=== PATIENT | male | born 1960 | race Caucasian/White ===

== ENCOUNTER 2017-08-20 15:14 | Outpatient (CLI) | payer OTHER ==
[2017-08-20 15:42] LABS: ALT (SGPT) 27 U/L (8-55); AST (SGOT) 16 U/L (5-34); Alkaline Phosphatase 61 U/L (40-150); Anion Gap 15 mmol/L (10-20); BUN (Urea Nitrogen) 20 mg/dL (8.4-25.7); Bilirubin, Total 0.6 mg/dL (0.2-1.2); Calc. Creatinine Clearance 0 mL/min (70-130); Calcium 9.5 mg/dL (7.8-10.44); Carbon Dioxide 25 mmol/L (22-29); Chloride 104 mmol/L (98-107); Estimated GFR-MDRD 86; Globulin 3.3 g/dL (2.4-3.5); Protein, Total 7.5 g/dL (6.0-8.3); Uric Acid 5.6 mg/dL (3.5-7.2)
--- NOTE | 2017-08-20 17:13 | RAD ---
FOUR VIEWS RIGHT KNEE: History: Right knee pain for two months. M25.561 Technique: AP, lateral, and both oblique views right knee obtained. FINDINGS: There is mild medial compartment joint space narrowing. No evidence of acute fractures, subluxations, or bony lesions seen. IMPRESSION: Mild medial compartment right knee osteoarthritic changes. No acute abnormalities seen. POS: [facility]
--- NOTE | 2017-08-20 17:42 | RAD ---
4 VIEWS LEFT KNEE: Date: 08/20/17 HISTORY: Left knee pain for 2 months. FINDINGS: AP, lateral, and both oblique views of left knee obtained. FINDINGS: There is some joint space narrowing in the medial compartment of the left knee. Osteophytes seen in t he lateral compartment of the left knee. Findings compatible with left knee osteoarthritic changes. IMPRESSION: Medial compartment joint space narrowing and lateral compartment osteophytes compatible with changes of osteoarthritis. POS: [facility]
== END 2017-08-20 15:15 | disposition home or self-care (01) ==
LOC: SCSRAD 15:14
PROVIDERS: ATTEND Family Medicine
DX: M25.561 Pain in right knee (principal); M25.562 Pain in left knee; R60.9 Edema, unspecified; M17.11 Unilateral primary osteoarthritis, right knee
CPT/HCPCS: 36415; 80053; 83880; 84443; 84550

== ENCOUNTER 2020-12-15 13:44 | Outpatient (CLI) | payer BC ==
[2020-12-15 17:36] LABS: #Eosinphils 0.4 10x3/uL (0.0-0.5); #Monocytes 0.5 10x3/uL (0.0-1.1); #Neutrophils 3.9 10x3/uL (1.5-8.4); %Basophils 0.6 % (0.0-2.0); %Eosinophils 6.1 % (0.0-6.0); %Lymphocytes 31.8 % (18.0-47.0); %Monocytes 7.5 % (0.0-10.0); %Neutrophils 53.6 % (40.0-75.0); Hemoglobin 16.2 g/dL (13.5-17.5); Mean Corpuscular Hemoglobin 29.1 pg (27.0-33.0); Mean Corpuscular Volume 88.3 fl (81.2-95.1); Mean Platelet Volume 10.6 fl (7.4-10.4); Platelet Count 208 10x3/uL (150-450); RBC Distribution Width 14.4 % (11.5-14.5); Red Blood Cell (RBC) Count 5.56 10x6/uL (4.32-5.72); White Blood Cell (WBC) Count 7.2 10x3/uL (3.5-10.5)
[2020-12-15 17:40] LABS: Bilirubin Neg (Negative); Blood, Urine Negative (Negative); Clarity Clear (Clear); Glucose, Urine (Dipstick) Normal (Negative); Ketone, Urine Negative (Negative); Leukocyte Negative (Negative); Nitrite Negative (Negative); Protein, Urine (Dipstick) Negative (Neg-Trace); Specific Gravity, Urine 1.015 (1.002-1.036); Urobilinogen Normal mg/dL (Less than 2)
[2020-12-15 17:47] LABS: INR-International Normal Ratio 0.9; Prothrombin Time 10.3 sec (9.5-12.1)
[2020-12-15 17:56] LABS: Anion Gap 14 mmol/L (10-20); BUN (Urea Nitrogen) 23 mg/dL (8.4-25.7); Calc. Creatinine Clearance 0 mL/min (70-130); Calcium 9.4 mg/dL (7.8-10.44); Carbon Dioxide 28 mmol/L (23-31); Chloride 103 mmol/L (98-107); Glucose 84 mg/dL (80-115); Potassium 4.7 mmol/L (3.5-5.1)
[2020-12-15 18:01] LABS: Bacteria/HPF None Seen HPF (None Seen); RBC/HPF None Seen HPF (0-3); Squamous Epithelial None Seen HPF (0-3); WBC/HPF None Seen HPF (0-3)
[2020-12-15 18:05] LABS: Sodium 140 mmol/L (136-145)
[2020-12-16 02:32] LABS: SARS-CoV-2 PCR by NAA Not Detected (NotDetected)
== END 2020-12-15 13:45 | disposition home or self-care (01) ==
LOC: LABBT 13:44
PROVIDERS: ATTEND Orthopaedic Surgery
DX: Z01.818 Encounter for other preprocedural examination (principal); M17.11 Unilateral primary osteoarthritis, right knee; Z20.822 Contact with and (suspected) exposure to COVID-19
CPT/HCPCS: 80048; 81001; 85025; 85610; 87081; 87635; 93005; 93010; U0003; U0005

== ENCOUNTER 2020-12-20 05:23 | Observation (INO) | payer BC ==
[2020-12-20] MEDS ORDERED: Tranexamic Acid 1,000 MG/10 ML VIAL ONE ×2 (05:59→09:17)
[2020-12-20] MEDS ORDERED: Sodium Chloride 0.9% 100 ML ONE (05:59)
[2020-12-20] MEDS ORDERED: Acetaminophen 325 MG/10.15 ML UDCUP ONE (05:59)
[2020-12-20] MEDS ORDERED: Vancomycin 1.5 GRAM/300 ML BAG ONE (05:59)
[2020-12-20] MEDS ORDERED: Midazolam HCl 2 mg/2 ml Vial ONE (06:13)
[2020-12-20] MEDS ORDERED: Fentanyl 100 MCG/2 ML VIAL ONE ×2 (06:14→06:56)
[2020-12-20] MEDS ORDERED: Bupivacaine PF 0.5% 30 ML VIAL ONE (06:25)
[2020-12-20] MEDS ORDERED: Lidocaine 1% (PF) 30 ML VIAL ONE (06:36)
[2020-12-20] MEDS ORDERED: Dexmedetomidine 200 MCG/2 ML VIAL ONE (06:56)
[2020-12-20] MEDS ORDERED: Ropivacaine 2% HCl/PF (20 MG/10 ML VIAL) ONE (07:12)
[2020-12-20] MEDS ORDERED: Ondansetron PF 4 MG/2 ML Vial ONE (07:12)
[2020-12-20] MEDS ORDERED: Ketorolac Tromethamine 30 MG/ML VIAL ONE (07:12)
[2020-12-20] MEDS ORDERED: Ropivacaine 0.5% HCl/PF (150 MG/30 ML VIAL) ONE (07:12)
[2020-12-20] MEDS ORDERED: Dexamethasone 20 MG/5 ML VIAL ONE (07:12)
[2020-12-20] MEDS ORDERED: PROPOFOL 200 MG/20 ML VIAL ONE (07:12)
[2020-12-20] MEDS ORDERED: Lidocaine 1% PF 5 ML VIAL ONE (07:12)
[2020-12-20] MEDS ORDERED: ePHEDrine 50 MG/ML VIAL ONE (07:12)
[2020-12-20] MEDS ORDERED: Fentanyl 100 MCG/2 ML VIAL IV PRN (07:32)
[2020-12-20] MEDS ORDERED: Zolpidem Tartrate 5 MG TAB PO PRN ×2 (07:45→09:53)
[2020-12-20] MEDS ORDERED: HYDROcodone/Acetaminophen 10/325 mg Tablet PO PRN (07:45)
[2020-12-20] MEDS ORDERED: Ondansetron PF 4 MG/2 ML Vial IVP PRN ×2 (07:45→09:53)
[2020-12-20] MEDS ORDERED: Ropivacaine HCl/PF 250 ML in Premix Bag 1 BAG NERVE BLCK SCH (07:45)
[2020-12-20] MEDS ORDERED: traMADol HCl 50 MG TAB PO PRN ×2 (07:45)
[2020-12-20] MEDS ORDERED: Promethazine HCl 25 MG/ML VIAL IM PRN ×2 (07:45→09:53)
[2020-12-20] MEDS ORDERED: Acetaminophen 325 MG TAB PO PRN (09:53)
[2020-12-20 11:24] VITALS: BMI 39.3
[2020-12-20] MEDS ORDERED: Ketorolac Tromethamine 30 MG/ML VIAL IVP SCH (12:00)
[2020-12-20] MEDS: Ketorolac Tromethamine 30 MG/ML VIAL IVP SCH ×2 (14:42→19:46)
[2020-12-20] MEDS: CEFAZOLIN 2 GM in Premix Bag 1 BAG IVPB SCH ×2 (14:43→22:03)
[2020-12-20] MEDS ORDERED: Vancomycin 1.5 GRAM/300 ML BAG 1.5 GM in Premix Bag 1 BAG IVPB SCH (18:00)
[2020-12-20] MEDS ORDERED: Vancomycin HCl 1.5 GM in Sodium Chloride 0.9% 250 ML 300 ML IVPB SCH (18:00)
[2020-12-20] MEDS: Senokot S 8.6-50 MG TAB PO SCH (19:49)
[2020-12-20] MEDS: Aspirin 81 mg Enteric Coated Tablet PO SCH (19:49)
[2020-12-20] MEDS: Ferrous Gluconate 324 MG TAB PO SCH (19:49)
[2020-12-21] MEDS: Ketorolac Tromethamine 30 MG/ML VIAL IVP SCH ×4 (02:03→20:04)
[2020-12-21 05:44] LABS: Mean Corpuscular HGB CONC 33.4 g/dL (32.0-36.0); Mean Corpuscular Hemoglobin 30.3 pg (27.0-31.0); Mean Corpuscular Volume 90.7 fL (78.0-98.0); Mean Platelet Volume 8.2 fL (7.4-10.4); Platelet Count 167 thou/uL (130-400); RBC Distribution Width 13.2 % (11.5-14.5); Red Blood Cell (RBC) Count 4.29 mill/uL (4.70-6.10); White Blood Cell (WBC) Count 11.9 thou/uL (4.8-10.8)
[2020-12-21] MEDS: Multivitamin W/ Minerals 1 TAB PO SCH (08:28)
[2020-12-21] MEDS: Senokot S 8.6-50 MG TAB PO SCH ×2 (08:28→20:05)
[2020-12-21] MEDS: Ferrous Gluconate 324 MG TAB PO SCH ×2 (08:29→20:05)
[2020-12-21] MEDS: HYDROcodone/Acetaminophen 10/325 mg Tablet PO PRN ×3 (08:29→18:19)
[2020-12-21] MEDS: Aspirin 81 mg Enteric Coated Tablet PO SCH ×2 (08:29→20:05)
[2020-12-22] MEDS: diphenhydrAMINE 25 MG CAP PO PRN ×2 (00:04→09:05)
[2020-12-22] MEDS: Ketorolac Tromethamine 30 MG/ML VIAL IVP SCH ×2 (02:42→09:02)
[2020-12-22 05:41] LABS: Hemoglobin 12.2 g/dL (14.0-18.0); Mean Corpuscular HGB CONC 32.4 g/dL (32.0-36.0); Mean Corpuscular Hemoglobin 29.4 pg (27.0-31.0); Mean Corpuscular Volume 90.8 fL (78.0-98.0); Mean Platelet Volume 8.6 fL (7.4-10.4); Platelet Count 149 thou/uL (130-400); RBC Distribution Width 13.1 % (11.5-14.5); Red Blood Cell (RBC) Count 4.17 mill/uL (4.70-6.10); White Blood Cell (WBC) Count 8.7 thou/uL (4.8-10.8)
[2020-12-22] MEDS: HYDROcodone/Acetaminophen 10/325 mg Tablet PO PRN (09:00)
[2020-12-22] MEDS: Aspirin 81 mg Enteric Coated Tablet PO SCH (09:02)
[2020-12-22] MEDS: Multivitamin W/ Minerals 1 TAB PO SCH (09:02)
[2020-12-22] MEDS: Senokot S 8.6-50 MG TAB PO SCH (09:02)
[2020-12-22] MEDS: Ferrous Gluconate 324 MG TAB PO SCH (09:02)
[2020-12-22 11:19] VITALS: BP 142/76; TEMP 98.7
== END 2020-12-22 11:20 | disposition home or self-care (01) ==
LOC: SDC 05:23 → SJJU 10:00 → EDSTATUS 13:45
PROVIDERS: ADMIT Orthopaedic Surgery; ATTEND Orthopaedic Surgery
PROC: 0SRC0J9 Replacement of Right Knee Joint with Synthetic Substitute, Cemented, Open Approach (ICD-10-PCS; principal; 2020-12-20)
PROC: 8E0YXBZ Computer Assisted Procedure of Lower Extremity (ICD-10-PCS; 2020-12-20)
PROC: 3E0T3BZ Introduction of Anesthetic Agent into Peripheral Nerves and Plexi, Percutaneous Approach (ICD-10-PCS; 2020-12-20)
PROC: 3E0T3BZ Introduction of Anesthetic Agent into Peripheral Nerves and Plexi, Percutaneous Approach (ICD-10-PCS; 2020-12-20)
DX: M17.0 Bilateral primary osteoarthritis of knee (principal); G89.18 Other acute postprocedural pain; J44.9 Chronic obstructive pulmonary disease, unspecified; G47.33 Obstructive sleep apnea (adult) (pediatric); N52.9 Male erectile dysfunction, unspecified; F17.200 Nicotine dependence, unspecified, uncomplicated; Z79.899 Other long term (current) drug therapy; Z88.5 Allergy status to narcotic agent
CPT/HCPCS: 36415; 85027; 96365; 96366; 96367; 96375; 96376; C1713; C1776; G0378; J0690; J1100; J1885; J2001; J2250; J2405; J2704; J2795; J3010; J3370; J3490; Q0163; S0020

== ENCOUNTER 2021-08-10 14:01 | Outpatient (CLI) | payer BC ==
[2021-08-10 15:58] LABS: INR-International Normal Ratio 0.9; Prothrombin Time 10.3 sec (9.5-12.1)
== END 2021-08-10 14:02 | disposition home or self-care (01) ==
LOC: LABBT 14:01
PROVIDERS: ATTEND Orthopaedic Surgery
DX: Z01.818 Encounter for other preprocedural examination (principal); M17.12 Unilateral primary osteoarthritis, left knee
CPT/HCPCS: 71046; 85610; 93005; 93010

== ENCOUNTER 2021-08-15 07:10 | Inpatient (IN) | payer BC ==
[2021-08-09 12:00] VITALS: BMI 39.1
[2021-08-10 15:43] LABS: Bilirubin Neg (Negative); Blood, Urine Negative (Negative); Clarity Clear (Clear); Glucose, Urine (Dipstick) Normal (Negative); Ketone, Urine Negative (Negative); Leukocyte Negative (Negative); Nitrite Negative (Negative); Protein, Urine (Dipstick) Negative (Neg-Trace); Specific Gravity, Urine 1.005 (1.002-1.036); Urobilinogen Normal mg/dL (Less than 2); pH, Urine 6.5 (5.0-9.0)
[2021-08-10 15:52] LABS: #Eosinphils 0.3 10x3/uL (0.0-0.5); #Monocytes 0.4 10x3/uL (0.0-1.1); #Neutrophils 3.1 10x3/uL (1.5-8.4); %Basophils 0.5 % (0.0-2.0); %Eosinophils 5.2 % (0.0-6.0); %Lymphocytes 41.3 % (18.0-47.0); %Monocytes 6.1 % (0.0-10.0); %Neutrophils 46.6 % (40.0-75.0); Hemoglobin 16.3 g/dL (13.5-17.5); Mean Corpuscular HGB CONC 32.5 g/dL (32.0-36.0); Mean Corpuscular Hemoglobin 28.6 pg (27.0-33.0); Mean Corpuscular Volume 87.9 fl (81.2-95.1); Mean Platelet Volume 10.2 fl (7.4-10.4); Platelet Count 212 10x3/uL (150-450); RBC Distribution Width 13.5 % (11.5-14.5); White Blood Cell (WBC) Count 6.6 10x3/uL (3.5-10.5)
[2021-08-10 16:09] LABS: Anion Gap 14 mmol/L (10-20); BUN (Urea Nitrogen) 20 mg/dL (8.4-25.7); Calc. Creatinine Clearance 0 mL/min (70-130); Calcium 9.3 mg/dL (7.8-10.44); Carbon Dioxide 24 mmol/L (23-31); Chloride 107 mmol/L (98-107); Glucose 85 mg/dL (80-115); Potassium 4.4 mmol/L (3.5-5.1); Sodium 141 mmol/L (136-145)
[2021-08-11 21:08] LABS: SARS-CoV-2 PCR by NAA Not Detected (NotDetected)
[2021-08-15] MEDS ORDERED: Midazolam HCl 2 mg/2 ml Vial ONE (08:06)
[2021-08-15] MEDS ORDERED: Fentanyl 100 MCG/2 ML VIAL ONE ×4 (08:06→12:41)
[2021-08-15] MEDS ORDERED: Tranexamic Acid 1,000 MG/10 ML VIAL ONE (08:07)
[2021-08-15] MEDS ORDERED: ceFAZolin Sodium (SDC) 2 GM/100 ML BAG ONE (08:07)
[2021-08-15] MEDS ORDERED: Sodium Chloride 0.9% 100 ML ONE (08:07)
[2021-08-15] MEDS ORDERED: Ondansetron HCl/PF 4 MG/2 ML Vial IVP PRN (08:15)
[2021-08-15] MEDS ORDERED: Promethazine HCl 25 MG/ML VIAL IVPB PRN (08:15)
[2021-08-15] MEDS ORDERED: Ketorolac Tromethamine 30 MG/ML VIAL IVP PRN (08:15)
[2021-08-15] MEDS ORDERED: Promethazine HCl 25 MG/ML VIAL IM PRN ×3 (08:15→11:54)
[2021-08-15] MEDS ORDERED: Vancomycin 1.5 GRAM/300 ML BAG 1.5 GM in Premix Bag 1 BAG IVPB SCH ×2 (08:30→21:00)
[2021-08-15] MEDS ORDERED: Fentanyl 100 MCG/2 ML VIAL IV PRN (09:39)
[2021-08-15] MEDS ORDERED: traMADol HCl 50 MG TAB PO PRN (09:45)
[2021-08-15] MEDS ORDERED: Ropivacaine 0.2% 550 ML 550 ML NERVE BLCK SCH (09:45)
[2021-08-15] MEDS ORDERED: Zolpidem Tartrate 5 MG TAB PO PRN ×2 (09:45→11:54)
[2021-08-15] MEDS ORDERED: Ondansetron PF 4 MG/2 ML Vial IVP PRN ×2 (09:45→11:54)
[2021-08-15] MEDS ORDERED: Succinylcholine 200 MG/10 ml SYRINGE FS ONE (10:02)
[2021-08-15] MEDS ORDERED: Lidocaine 1% PF 5 ML VIAL ONE (10:02)
[2021-08-15] MEDS ORDERED: Bupivacaine HCl 0.5%/Epinephrine 1:200,000/PF 30 ml Vial ONE (10:02)
[2021-08-15] MEDS ORDERED: Rocuronium Bromide 10 MG/ML (10ML VIAL) ONE (10:02)
[2021-08-15] MEDS ORDERED: ePHEDrine 50 MG/ML VIAL ONE (10:02)
[2021-08-15] MEDS ORDERED: Ondansetron PF 4 MG/2 ML Vial ONE (10:02)
[2021-08-15] MEDS ORDERED: EPINEPHrine 1 MG/10 ML Abboject SYRINGE ONE (10:02)
[2021-08-15] MEDS ORDERED: Ketorolac Tromethamine 30 MG/ML VIAL ONE (10:02)
[2021-08-15] MEDS ORDERED: PHENYLEPHRINE-NS 100 MCG/ML 10 ML SYRINGE ONE (10:02)
[2021-08-15] MEDS ORDERED: PROPOFOL 200 MG/20 ML VIAL ONE (10:02)
[2021-08-15] MEDS ORDERED: Bupivacaine PF 0.5% 30 ML VIAL ONE (10:52)
[2021-08-15] MEDS ORDERED: guaiFENesin ER 600 MG TAB PO PRN (11:56)
[2021-08-15] MEDS ORDERED: Tranexamic Acid 1,000 MG in Sodium Chloride 0.9% 100 ML IVPB SCH (12:00)
[2021-08-15] MEDS ORDERED: hydrALAZINE 20 MG/ML VIAL SLOW IVP PRN (14:50)
[2021-08-15] MEDS ORDERED: Albuterol Sulfate 2.5 mg/3 ml Neb NEB PRN ×2 (14:59→15:08)
[2021-08-15] MEDS: Acetaminophen 325 MG TAB PO PRN ×2 (15:13→21:24)
[2021-08-15] MEDS: traMADol HCl 50 MG TAB PO PRN ×2 (15:14→21:23)
[2021-08-15] MEDS: Ketorolac Tromethamine 30 MG/ML VIAL IVP SCH ×2 (17:23→17:45)
[2021-08-15] MEDS: Sodium Chloride 0.9% 1,000 ML IV SCH ×2 (17:24→22:00)
[2021-08-15] MEDS: CEFAZOLIN 2 GM, Admixture Fee 1 EACH in Sodium Chloride 0.9% 100 ML IVPB SCH (17:45)
[2021-08-15] MEDS ORDERED: Non-Formulary Item 1 EACH (Celecoxib [Celebrex] 200 MG Capsule) PO SCH (21:00)
[2021-08-15] MEDS: Aspirin 81 mg Enteric Coated Tablet PO SCH (21:23)
[2021-08-16] MEDS: Ketorolac Tromethamine 30 MG/ML VIAL IVP SCH ×5 (02:19→23:39)
[2021-08-16] MEDS: CEFAZOLIN 2 GM, Admixture Fee 1 EACH in Sodium Chloride 0.9% 100 ML IVPB SCH (03:14)
[2021-08-16 06:15] LABS: Hemoglobin 13.5 g/dL (14.0-18.0); Mean Corpuscular HGB CONC 33.4 g/dL (32.0-36.0); Mean Corpuscular Hemoglobin 30.7 pg (27.0-31.0); Mean Corpuscular Volume 91.9 fL (78.0-98.0); Mean Platelet Volume 7.7 fL (7.4-10.4); Platelet Count 167 thou/uL (130-400); RBC Distribution Width 12.8 % (11.5-14.5); Red Blood Cell (RBC) Count 4.39 mill/uL (4.70-6.10); White Blood Cell (WBC) Count 8.2 thou/uL (4.8-10.8)
[2021-08-16] MEDS: Sodium Chloride 0.9% 1,000 ML IV SCH ×2 (07:24→17:09)
[2021-08-16] MEDS: Senokot S 8.6-50 MG TAB PO SCH ×2 (08:05→20:38)
[2021-08-16] MEDS: Aspirin 81 mg Enteric Coated Tablet PO SCH ×2 (08:05→20:37)
[2021-08-16] MEDS: Ferrous Gluconate 324 MG TAB PO SCH ×2 (08:06→20:37)
[2021-08-16] MEDS: Multivitamin W/ Minerals 1 TAB PO SCH (08:06)
[2021-08-16] MEDS: Acetaminophen 325 MG TAB PO PRN ×2 (08:06→15:21)
[2021-08-16] MEDS: Loratadine 10 MG TAB PO SCH (08:06)
[2021-08-16] MEDS: traMADol HCl 50 MG TAB PO PRN ×2 (08:08→15:22)
[2021-08-16] MEDS ORDERED: FLU VACC QS2021-22(65YR UP)/PF 240 MCG/0.7 ML SYRINGE IM ONE (09:00)
[2021-08-16] MEDS ORDERED: fentaNYL Citrate/PF 2,000 MCG in Sodium Chloride 0.9% 60 ML IV PRN (13:42)
[2021-08-16] MEDS ORDERED: Ondansetron PF 4 MG/2 ML Vial IVP PRN (13:42)
[2021-08-16] MEDS ORDERED: Naloxone HCl 0.4 mg/ml Vial IV PRN (13:42)
[2021-08-16] MEDS ORDERED: diphenhydrAMINE 50 MG/ML VIAL IVP PRN (13:42)
[2021-08-16] MEDS ORDERED: diphenhydrAMINE 50 MG/ML VIAL IM PRN (13:42)
[2021-08-16] MEDS ORDERED: Zolpidem Tartrate 5 MG TAB PO PRN (13:42)
[2021-08-16] MEDS ORDERED: Promethazine HCl 25 MG/ML VIAL IM PRN (13:42)
[2021-08-16] MEDS ORDERED: diphenhydrAMINE 25 MG CAP PO PRN (13:42)
[2021-08-16] MEDS ORDERED: Communication Order-Pharmacy FS SCH (13:45)
[2021-08-17] MEDS: Sodium Chloride 0.9% 1,000 ML IV SCH ×2 (03:37→13:07)
[2021-08-17] MEDS: Ketorolac Tromethamine 30 MG/ML VIAL IVP SCH (05:14)
[2021-08-17 06:11] LABS: Hemoglobin 13.1 g/dL (14.0-18.0); Mean Corpuscular HGB CONC 32.9 g/dL (32.0-36.0); Mean Corpuscular Hemoglobin 30.2 pg (27.0-31.0); Mean Corpuscular Volume 91.9 fL (78.0-98.0); Mean Platelet Volume 7.9 fL (7.4-10.4); Platelet Count 160 thou/uL (130-400); RBC Distribution Width 12.7 % (11.5-14.5); Red Blood Cell (RBC) Count 4.32 mill/uL (4.70-6.10); White Blood Cell (WBC) Count 8.9 thou/uL (4.8-10.8)
[2021-08-17] MEDS: Senokot S 8.6-50 MG TAB PO SCH ×2 (08:18→21:01)
[2021-08-17] MEDS: traMADol HCl 50 MG TAB PO PRN ×2 (08:19→15:47)
[2021-08-17] MEDS: Multivitamin W/ Minerals 1 TAB PO SCH (08:19)
[2021-08-17] MEDS: Aspirin 81 mg Enteric Coated Tablet PO SCH ×2 (08:19→21:01)
[2021-08-17] MEDS: Loratadine 10 MG TAB PO SCH (08:19)
[2021-08-17] MEDS: Acetaminophen 325 MG TAB PO PRN (08:19)
[2021-08-17] MEDS: Ferrous Gluconate 324 MG TAB PO SCH ×2 (08:20→21:01)
[2021-08-17] MEDS ORDERED: HYDROcodone/Acetaminophen 5/325 mg Tablet PO PRN (11:40)
[2021-08-17] MEDS: HYDROcodone/Acetaminophen 5/325 mg Tablet PO PRN ×2 (11:52→18:17)
[2021-08-17] MEDS: diphenhydrAMINE 25 MG CAP PO PRN ×2 (11:53→18:18)
[2021-08-17] MEDS ORDERED: ceFAZolin 2 GM/DEX 5% 100 ML BAG IVPB SCH (14:00)
[2021-08-17] MEDS: CEFAZOLIN 2 GM, Admixture Fee 1 EACH in Sodium Chloride 0.9% 100 ML IVPB SCH (15:02)
[2021-08-18] MEDS: CEFAZOLIN 2 GM, Admixture Fee 1 EACH in Sodium Chloride 0.9% 100 ML IVPB SCH ×2 (00:18→07:54)
[2021-08-18] MEDS: traMADol HCl 50 MG TAB PO PRN ×2 (01:15→06:59)
[2021-08-18] MEDS: Sodium Chloride 0.9% 1,000 ML IV SCH ×2 (01:18→10:27)
[2021-08-18] MEDS ORDERED: ceFAZolin Sodium/D5W 2 GM in Premix Bag 1 BAG IVPB SCH (06:00)
[2021-08-18 06:56] LABS: Mean Corpuscular HGB CONC 32.3 g/dL (32.0-36.0); Mean Corpuscular Hemoglobin 29.5 pg (27.0-31.0); Mean Corpuscular Volume 91.3 fL (78.0-98.0); Mean Platelet Volume 7.8 fL (7.4-10.4); Platelet Count 180 thou/uL (130-400); RBC Distribution Width 12.6 % (11.5-14.5); Red Blood Cell (RBC) Count 4.41 mill/uL (4.70-6.10); White Blood Cell (WBC) Count 8.4 thou/uL (4.8-10.8)
[2021-08-18] MEDS: Multivitamin W/ Minerals 1 TAB PO SCH (08:15)
[2021-08-18] MEDS: Ferrous Gluconate 324 MG TAB PO SCH (08:15)
[2021-08-18] MEDS: Aspirin 81 mg Enteric Coated Tablet PO SCH (08:15)
[2021-08-18] MEDS: Loratadine 10 MG TAB PO SCH (08:15)
[2021-08-18] MEDS: Senokot S 8.6-50 MG TAB PO SCH (08:15)
[2021-08-18 08:28] VITALS: BP 156/94; TEMP 98.3
[2021-08-18] MEDS: diphenhydrAMINE 25 MG CAP PO PRN (10:24)
== END 2021-08-18 10:38 | disposition home or self-care (01) | DRG 470 ==
LOC: SDC 07:10 → SJJU 11:54
PROVIDERS: ADMIT Orthopaedic Surgery; ATTEND Orthopaedic Surgery
PROC: 0SRD0J9 Replacement of Left Knee Joint with Synthetic Substitute, Cemented, Open Approach (ICD-10-PCS; principal; 2021-08-15)
DX: M17.12 Unilateral primary osteoarthritis, left knee (principal); Z20.822 Contact with and (suspected) exposure to COVID-19; M25.762 Osteophyte, left knee; J44.9 Chronic obstructive pulmonary disease, unspecified; E66.9 Obesity, unspecified; F17.210 Nicotine dependence, cigarettes, uncomplicated; G47.33 Obstructive sleep apnea (adult) (pediatric); Z68.39 Body mass index [BMI] 39.0-39.9, adult; Z88.5 Allergy status to narcotic agent; Z99.89 Dependence on other enabling machines and devices; Z79.899 Other long term (current) drug therapy
CPT/HCPCS: 36415; 80048; 81003; 85025; 85027; 86850; 86900; 86901; 87081; 90471; 90662; A4306; C1713; C1776; G0008; J0171; J0690; J1885; J2250; J2405; J2704; J2795; J3010; J3370; J3490; S0020; U0003; U0005